=== PATIENT | female | born 1930 | race Caucasian/White ===

== ENCOUNTER 2018-06-05 12:48 | Outpatient (CLI) ==
--- NOTE | 2018-06-05 13:21 | DI ---
EXAM: Right hip two-view HISTORY: Right hip pain COMPARISON: None FINDINGS: No fracture or dislocation. Mild osteoarthritis right hip with joint space narrowing oste ophyte formation. No focal soft tissue abnormality. IMPERSSION: Mild osteoarthritis right hip.
--- NOTE | 2018-06-05 15:43 | DI ---
EXAM: Lumbar spine three views HISTORY: Back and hip pain FINDINGS: No comparison radiography. There is severe diffuse degenerative disc and facet disease of the spine. No acute fracture or significant loss of vertebral body height is obvious. There is a a t least mild scoliosis convex toward the right. Moderate arthropathy of the sacroiliac joints. Prob able anterior spondylolisthesis of L5 on S1 estimated at possibly 5 mm although the level is not well seen on the current study. There is atherosclerotic disease. IMPRESSION: 1. Severe diffuse degenerative changes of the spine.
== END 2018-06-05 12:49 | disposition home or self-care (01) ==
LOC: RAD 12:48
PROVIDERS: ATTEND Family Medicine
DX: M25.551 Pain in right hip (principal)